=== PATIENT | female | born 1940 | race Caucasian/White ===

== ENCOUNTER → 2018-03-12 | Outpatient (CLI) | payer OTHER ==
--- NOTE | ~2018-03-12 | 2DMMODE ---
[facility] [address] [place] [address] 2 D/M-MODE ECHOCARDIOGRAM Name: MACARIO POTTER Room #: REG [facility]#: [id number] Admission: 03/12/18 Attend Phys: Roosevelt Aparicio Discharge: Date of : 42 Date of Service: 03/12/18 1605 Report #: [id number] THIS REPORT FOR: //name// APPROVED REPORT Study performed: 03/12/2018 11:49:07 EXAM: Comprehensive 2D, Doppler, and color-flow Echocardiogram Patient Location: Out-Patient Room #: Echo lab 2 Status: routine BSA: 1.82 HR: 49 bpm BP: 156/88 mmHg Rhythm: NSR Other Information Study Quality: Adequate Indications Diabetes Hypertension/HDD 2D Dimensions RVDd: 27.99 mm IVSd: 11.92 (7-11mm) LVOT Diam: 19.64 (18-24mm) LVDd: 41.23 mm PWd: 12.11 (7-11mm) Ascending Ao: 32.78 (22-36mm) LVDs: 28.71 (25-40mm) Aortic Root: 30.57 mm IVC: 10.00 mm Volumes Left Atrial Volume (Systole) Single Plane 4CH: 40.97 mL Single Plane 2CH: 62.46 mL LA ESV Index: 33.00 mL/m2 Aortic Valve AoV Peak Scott.: 1.43 m/s AO Peak Gr.: 8.22 mmHg LVOT Max P.44 mmHg LVOT Max V: 1.27 m/s GLORIA Vmax: 2.68 cm2 Mitral Valve E/A Ratio: 1.4 MV Decel. Time: 207.85 ms [facility] [address] [address] 2 D/M-MODE ECHOCARDIOGRAM Name: MACARIO POTTER Room #: [facility]#: [id number] Admission: 03/12/18 Attend Phys: Roosevelt Aparicio Discharge: Date of : 42 Date of Service: 03/12/18 1605 Report #: [id number] MV E Max Scott.: 0.88 m/s MV A Scott.: 0.65 m/s MV PHT: 60.28 ms IVRT: 106.11 ms Pulmonary Valve PV Peak Scott.: 0.83 m/s PV Peak Gr.: 2.73 mmHg Pulmonary Vein P Vein S: 0.60 m/s P Vein A: 0.24 m/s P Vein D: 0.43 m/s P Vein A Dur.: 101.5 msec P Vein S/D Ratio: 1.40 Left Ventricle The left ventricle is normal size. There is normal LV segmental wall motion. There is normal left ventricular wall thickness. Left ventricular systolic function is normal. The left ventricular ejection fraction is within the normal range. LVEF is 55-60%. The left ventricular diastolic function is normal. Right Ventricle The right ventricle is normal size. The right ventricular systolic function is normal. Atria The left atrium size is normal. The right atrium size is normal. Aortic Valve The aortic valve is normal in structure. No aortic regurgitation is present. There is no aortic valvular stenosis. Mitral Valve The mitral valve is normal in structure. Trace mitral regurgitation. No evidence of mitral valve stenosis. Tricuspid Valve The tricuspid valve is normal in structure. There is no tricuspid valve regurgitation noted. Pulmonic Valve The pulmonary valve is normal in structure. There is no pulmonic valvular regurgitation. Great Vessels The aortic root is normal in size. IVC is normal in size and [facility] [address] [place] [address] 2 D/M-MODE ECHOCARDIOGRAM Name: MACARIO POTTER Room #: REG Sherry#: [id number] Admission: 03/12/18 Attend Phys: Roosevelt Aparicio Discharge: Date of : 42 Date of Service: 03/12/18 1605 Report #: [id number] collapses >50% with inspiration. Pericardium There is no pericardial effusion. <Conclusion> Left ventricular systolic function is normal. There is normal LV segmental wall motion. LVEF is 55-60%. Normal diastolic function The aortic valve is normal in structure. No aortic regurgitation or stenosis The mitral valve is normal in structure. Trace mitral regurgitation. Pulmonary artery pressure could not be reliably ascertained. There is no pericardial effusion. <ELECTRONICALLY SIGNED> By: Wai Maldonado MD, FACC 03/12/18 1605 04 160 Wai Maldonado MD, FACC /INF
== END ==
LOC: CV 10:51 → NUC 12:03 → CV 12:12
DX: I10 Essential (primary) hypertension (principal); E11.9 Type 2 diabetes mellitus without complications; R94.31 Abnormal electrocardiogram [ECG] [EKG]; R07.9 Chest pain, unspecified; E78.5 Hyperlipidemia, unspecified; Z87.891 Personal history of nicotine dependence

== ENCOUNTER → 2018-03-27 | Outpatient (CLI) | payer OTHER ==
[~2018-03-27] VITALS: Ht 167.6 cm; Wt 70.3 kg
[~2018-03-27] MED LIST: ASPIR 8181 M1 PO; ERGOCALCIF50000 UNIT PO; FOLIC ACID1 MG PO; IMDUR 30 MG TAB30 M1 PO; LIPITOR 20 MG T20 M1 PO; METFORMIN HCL500 MG PO; NORVASC5 MG PO; OXYCONTIN10 M1 PO; PERCOCET PO; SPIRIVA INH; TOPROL XL25 MG PO; VENLAFAXINE HCL75 M1 PO; VENTOLIN HFA 1818 GM INH; VOLTAREN 50MG T50 MG PO
--- NOTE | ~2018-03-27 | CATHLAB ---
[facility] [address] [place] [address] INVASIVE PROCEDURE REPORT Name: MACARIO POTTER [id number] Admission: 03/27/18 Attend Phys: Roosevelt Aparicio Discharge: Date of : 42 Date of Service: 03/28/18 1255 Report #: [id number] THIS REPORT FOR: //name// APPROVED REPORT Study performed: 03/27/2018 09:56:27 Patient Details Patient Status: Out-Patient Room #: The patient is a 77 year-old female Event Personnel Roosevelt Oro Sports Medicine Coordinator, Elissa Diaz RTR, GUM ROLLING MACHINE TENDER Monitor, Noemi Mcallister RN RN, Richard Wasserman Penny, Wes Profile Saw Setup Operator Procedures Performed Art Access - R femoral artery* Left Heart Cath w/or w/o Coronaries [id number] [facility] [id number] Initial Mod Sed Same Phys/QHP Gr5y 197802 Hemostasis with Manual pressure supervision of conscious sedation Indication Positive stress test Procedure Narrative The Right Groin^ was infiltrated with 1% Lidocaine subcutaneous anesthesia. A PINNACLE 4FR Sheath #[id number] sheath was inserted into the RFA^. Coronary angiography was performed using coronary diagnostic catheters. The right coronary system was accessed and visualized with a JR4 catheter. The left coronary system was accessed and visualized with a 4FR JL 5.0 #[id number] catheter. The left ventricle was accessed and visualized with a angled Pigtail catheter. Left ventricular/Aortic Valve gradient assessed via catheter pullback. Left ventriculogram was performed in 30 degree projection. Hemostasis was obtained with manual pressure following sheath removal without any complications. The patient tolerated the procedure well and there were no complications associated with the procedure. There was no hematoma. Intraoperative Conscious Sedation Sedation start time: 10:24 Case end Time: 10:57 Versed 2 mg [facility] [place] [address] INVASIVE PROCEDURE REPORT Name: TARIQMACARIO BETTY Room #: REG Sherry#: [id number] Admission: 03/27/18 Attend Phys: Roosevelt Aparicio Discharge: Date of : 42 Date of Service: 03/28/18 1255 Report #: [id number] Fluoro Time: 2.33 minutes Dose: DAP 2134.90 cGycm2 297 mGy Contrast Type and Amount: Omnipaque 50 ml Coronary Angiography The patient's coronary anatomy is right dominant. Diagnostic Cath Left Main Normal origin and caliber has a proximal 30% stenosis in then continues on with a mid and distal narrowing concentrically of 20-30% as it bifurcates in the left anterior descending left circumflex arteries LAD Order to small caliber type II vessel which proximally has irregularities. There is a heavy calcified portion after the first septal retail sales consultant but the lumen appears to be greater than 50-60% open. The vessel then gives rise to a moderate caliber first diagonal branch it has moderate luminal irregularities as it courses along the anterolateral wall. LAD proper continues in the to ventricular sulcus with a quite tortuous region and high grade lesion prior to the second septal retail sales consultant then continues on as a smaller caliber vessel with moderate diffuse disease and terminating as a string-like vessel at the apex Diagonal 1 Small calibered vessel with moderate luminal irregularities noted in the proximal third Circumflex Moderate caliber vessel which has a tortuous proximal portion in the AV groove giving rise to a small to moderate caliber marginal branch. Prior to the origin of this marginal and the terminal posterior branch of the circumflex is a 75-80% eccentric calcified lesion OM1 Small-caliber vessel with only mild luminal irregularities noted until its mid course with is a high-grade lesion at less than 1 mm in diameter vessel size and continues on terminating as a lateral apical wall Right Coronary Large-caliber vessel with heavy calcification in the proximal third. Prior to the acute margin there is a 80-90% eccentric lesion of the right coronary artery proper. A small marginal RV branch that arises which is insignificant in size and has disease proximally. The RCA proper continues in the AV groove to the crux of the heart or the posterior descending artery originates with a proximal lesion of approximately 75%. E RCA proper narrows to 50% as the posterior circulation consisting of a insignificant posterior wall branch and a small posterolateral branch are noted R PDA Small to moderate caliber vessel with a proximal lesion as stated above and rapidly tapers to less than 1 mm in diameter in its distal third as it courses towards the apex [address] [address] INVASIVE PROCEDURE REPORT Name: MACARIO POTTER BETTY Room #: REG [facility]#: [id number] Admission: 03/27/18 Attend Phys: Roosevelt Aparicio Discharge: Date of : 42 Date of Service: 03/28/18 1255 Report #: [id number] Left Ventriculography Normal left ventricular cavity size and contractility noted on LV gram Hemodynamics The aortic pressure is 130/57 mmHg with a mean of 85 mmHg. The left ventricular pressure is 214/19 mmHg with a mean of mmHg. The left ventricular end diastolic pressure is 40 mmHg. Conclusion 1. 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 Abnormal hemodynamics with elevated liver ventricular end-diastolic pressures Recommendations Cardiac Risk Reduction Program CABG <ELECTRONICALLY SIGNED> By: Roosevelt Oro MD 03/28/18 1255 1255 1255 Roosevelt Oro MD /INF
[2018-03-27 08:07] VITALS: BP 133/84
[2018-03-27 08:15] LABS: HEMOGLOBIN 13.7 gm/dL (12.0-15.0); MCH 31.4 pg (26.0-34.0); MCHC 34.2 g/dL (28.0-37.0); MCV 91.8 fL (80.0-100.0); RBC 4.35 mil/uL (4.20-5.00); RDW 13.2 % (10.5-14.5); WBC 10.4 thou/uL (4.0-11.0)
[2018-03-27 08:24] LABS: CALCIUM 9.6 mg/dL (8.5-10.1); CREATININE 0.9 mg/dL (0.6-1.0); POTASSIUM 3.9 mmol/L (3.5-5.1)
[2018-03-27 08:31] LABS: PROTIME 9.9 Seconds (9.3-11.4)
== END | disposition home or self-care (01) ==
LOC: CATH 07:02
PROVIDERS: Internal Medicine
DX: I25.10 Atherosclerotic heart disease of native coronary artery without angina pectoris (principal); I10 Essential (primary) hypertension; E11.9 Type 2 diabetes mellitus without complications; E78.5 Hyperlipidemia, unspecified; F03.90 Unspecified dementia, unspecified severity, without behavioral disturbance, psychotic disturbance, mood disturbance, and anxiety; F32.9 Major depressive disorder, single episode, unspecified; M54.2 Cervicalgia; L40.50 Arthropathic psoriasis, unspecified; M48.00 Spinal stenosis, site unspecified; M19.90 Unspecified osteoarthritis, unspecified site; Z79.899 Other long term (current) drug therapy; Z79.82 Long term (current) use of aspirin; Z79.84 Long term (current) use of oral hypoglycemic drugs; Z98.890 Other specified postprocedural states; Z98.42 Cataract extraction status, left eye; Z98.41 Cataract extraction status, right eye; Z82.49 Family history of ischemic heart disease and other diseases of the circulatory system; Z87.891 Personal history of nicotine dependence